=== PATIENT | male | born 1985 | race Caucasian/White ===

== ENCOUNTER 2018-07-02 22:54 | Emergency (ER) | payer MEDICAID ==
[2018-07-02 23:04] VITALS: BP 114/80
[2018-07-02] MEDS ORDERED: SULFAMET/TMP DS PREPACK#2 BTL TAKEHOME ONE (23:39)
[2018-07-02] MEDS ORDERED: SULFAMETHOX/TMP 800/160 MG 1 TAB PO ONE (23:40)
--- NOTE | 2018-07-02 23:43 | EDPHY ---
H & P Time Seen by Provider: 07/02/18 23:21 HPI/ROS: CHIEF COMPLAINT: Right arm infection HISTORY OF PRESENT ILLNESS: Patient is a 32-year-old male with no significant past medical history here with complaint of right arm infection. [place] sticking out of his right forearm. Said he scratched this off and did notice much more of a until he woke this morning there was surrounding redness. He then noticed throughout the day that he gradually developed streaking up his arm. He denies any fever or chills or vomiting. He has no prior history of MRSA infection. Denies any drug use. He takes no prescribed medications. He has allergy to penicillin. REVIEW OF SYSTEMS: Constitutional: No fever, no chills. Eyes: No discharge. ENT: No sore throat. Cardiovascular: No chest pain, no palpitations. Respiratory: No cough, no shortness of breath. Gastrointestinal: No abdominal pain, no vomiting. Genitourinary: No hematuria. Musculoskeletal: No back pain. Skin: + rash. Neurological: No headache. Smoking Status: Never smoked Physical Exam: General Appearance: Alert and no distress. Eyes: Pupils equal and round no injection. Respiratory: Chest is nontender, lungs are clear to auscultation. Cardiac: regular rate and rhythm. Gastrointestinal: Abdomen is soft and nontender, no masses, bowel sounds normal. Musculoskeletal: Neck is supple and nontender. Extremities have full range of motion and are nontender. Skin: 2 x 2 cm area of erythema the mid extensor aspect of the right forearm. There is no fluctuance or purulent drainage. There is approximately 3 3-4 cm of streaking up the forearm. Constitutional: Initial Vital Signs Temperature (C) 36.7 C 07/02/18 23:01 Heart Rate 86 07/02/18 23:01 Respiratory Rate 18 07/02/18 23:01 Blood Pressure 114/80 07/02/18 23:01 O2 Sat (%) 97 07/02/18 23:01 O2 Delivery Mode Room Air Allergies/Adverse Reactions: Penicillins Allergy (Verified 07/02/18 23:01) Home Medications: Medication Instructions Recorded Sulfamethox/Tmp 800/160 mg 1 tab PO BID #14 tab 07/02/18 [Bactrim Ds] Medical Decision Making ED Course/Re-evaluation: Patient here with cellulitis of the right forearm with streaking. He is afebrile nontoxic-appearing and there is no tachycardia other signs of sepsis. We will start him on Bactrim and him do warm compresses. We discuss need for return to ER if the area becomes more full an indurated or fluctuant. Patient agrees to the plan. Differential Diagnosis: Abscess, cellulitis, necrotizing fasciitis, insect bite - Data Points Medications Given: Discontinued Medications Trimethoprim/Sulfamethoxazole (Bactrim Ds Prepack#2) 1 btl TAKEHOME EDNOW ONE Stop: 07/02/18 23:40 Last Admin: 07/03/18 00:00 Dose: 1 btl Trimethoprim/Sulfamethoxazole (Bactrim Ds) 1 ea PO EDNOW ONE PRN Reason: Protocol Stop: 07/02/18 23:41 Last Admin: 07/03/18 00:00 Dose: 1 ea Departure - Departure Disposition: Home, Routine, Self-Care Clinical Impression: Cellulitis Condition: Good Instructions: Sulfamethoxazole/Trimethoprim (By mouth), Cellulitis (ED) Additional Instructions: Please do warm compress to the area of infection 2-3 times per day for at least 5 min. Also take Bactrim the antibiotic twice a day for the next 7 days. The area of redness increases or he have increased swelling or development of a fluctuant area please return to the ER for further evaluation. Referrals: NONE *PRIMARY CARE P,. [Primary Care Provider] - As per Instructions [facility],. [Clinic] - As per Instructions Prescriptions: Sulfamethox/Tmp 800/160 mg [Bactrim Ds] 1 tab PO BID #14 tab
== END 2018-07-03 | disposition home or self-care (01) ==
DX: L03.113 Cellulitis of right upper limb (principal)